=== PATIENT | male | born 1975 | race Caucasian/White ===

== ENCOUNTER 2025-02-26 07:58 | Emergency (ER) | payer OTHER, SELFPAY ==
[2025-02-26 07:58] VITALS: BP 164/99; PULSE 79; RESP 16; TEMP 36.5; O2SAT 99
--- NOTE | 2025-02-26 08:05 | ED_ITS ---
HPI - Dental/Oral General Chief complaint: Dental/Oral Stated complaint: tooth pain Time Seen by Provider: 02/26/25 08:04 Source: patient Mode of arrival: ambulatory Limitations: no limitations History of Present Illness HPI Narrative: this is a 49-year-old male with no significant past medical history presents with dental pain and abscess formation with some tender left submandibular gland no shortness of breath no nausea vomiting. MD Complaint: tooth pain Teeth map: 2 1. dental decay with surrounding gum abscess Onset (ago): day(s) Duration: constant Severity: moderate Severity scale (1-10): 3 Relieving factors: NSAIDs Exacerbating factors: chewing Associated symptoms: gum swelling Related Data Allergies Allergy/AdvReac Type Severity Reaction Status Date / Time No Known Allergies Allergy Verified 02/26/25 08:03 Review of Systems 2 Review of Systems: All systems reviewed & are unremarkable except as noted in HPI and below PMFSH Past Medical History Medical History Patient denies medical problems Exam 2 Const: General: healthy appearing, no acute distress and alert Nutritional Appearance: well nourished and thin Orientation/consciousness: patient oriented x3 Limitations: no limitations HENMT: Teeth and gingiva: abnormal tooth and associated gingiva Eyes: Conjunctivae: conjunctivae normal Pupils: Equal, round and reactive pupils present Neck: Neck: normal visual inspection and lymphadenopathy Chest: Chest palpation & inspection: normal inspection of the chest Resp: Effort & Inspection: normal respiratory effort Auscultation: clear to auscultation bilaterally Cardio: Rate: regular rate Rhythm: regular rhythm GI: GI Palp: Yes Soft to palpation Auscultation: normal bowel sounds : General: Yes bladder normal to palpation Skin: General skin exam: normal color Rashes: no rashes Course Course Emergency Course: patient requires antibiotics will send antibiotics to his local pharmacy advised patient follow-up with his dentist. Critical Care Time Critical Care Time Critical Care Time: No Discharge Plan Discharge Clinical Impression: Dental abscess, Dental caries Patient Disposition: Home Condition: Stable Instructions: Antibiotic Form, Dental Abscess (ED) Additional Instructions: Take medication as prescribed and follow-up with primary care physician/ dentist within the next 2 to 3 weeks further evaluation and treatment. Patient Language: Indonesian Prescriptions: New amoxicillin 500 mg tablet 500 mg PO TID Qty: 30 0RF naproxen 500 mg tablet 500 mg PO BID Qty: 14 0RF Follow-up/Referrals: Salas Sandra DO [Primary Care Provider] - Stand Alone Forms: Work/School Release IP Time of Disposition: 08:10
[2025-02-26 08:25] VITALS: BP 164/99; PULSE 79; RESP 16; TEMP 36.5; O2SAT 99
== END 2025-02-26 08:25 | disposition home or self-care (01) ==
PROVIDERS: Emergency Provider Emergency Medicine; Referring Provider Family Medicine
DX: K04.7 Periapical abscess without sinus (principal); K02.9 Dental caries, unspecified
CPT/HCPCS: 99283

== ENCOUNTER 2025-06-04 09:37 | Outpatient (CLI) | payer OTHER, SELFPAY ==
--- NOTE | 2025-06-04 | CONSULT_PTH ---
PATIENT: Jarrod Barakat Jr. LOC: [facility]#:[id number] AGE/SX: 50/M ROOM: RE06/04/[address]: Salas Sandra DO : 1975 BED: DIS: 06/04/2025 SPEC #: [id number] RECD: 06/04/25 12:13 STATUS: JOAQUIN REGabriela #: [id number] BLANK: 06/04/25 00:[address]: Salas Sandra DEPT: [facility] Consult RECD BY: Ritika Causey MLT, ([facility]) ENTERED: 06/04/25 12:13 SP TYPE: Consult OTHR DR: Faisal Soto MD Tissues: A - Peripheral Smear Procedures: Hematology Consult
[2025-06-04 09:51] LABS: Hematocrit 41.2 % (40.0-54.0); Hemoglobin 14.0 g/dL (14.0-18.0); Mean Corpuscular HGB Conc 34.0 g/dL (32-36); Mean Corpuscular Hemoglobin 32.1 pg (27.0-31.0); Mean Corpuscular Volume 94.5 fL (78.0-102.0); Platelet Count Result 260 K/mm3 (150-420); Red Blood Count 4.36 M/mm3 (4.70-6.10); White Blood Count 6.4 K/mm3 (4.8-10.8)
--- OUTSIDE RECORDS SUMMARY | 2025-06-04 10:06 | XMS_ITS | Clinical Summary ---
Author Organization [facility] Address [address] [place] [id number] Care Team Providers Care Meat Slicer Name Role Phone Toby Blue MD Primary Care Provider + Allergies No known active allergies Medications No known medications Active Problems Problem Noted Date Diagnosed Date Impacted cerumen of right ear 05/29/2023 Assessment & Plan (05/29/2023 3:22 PM CDT): - wax removed - f/u prn Lymphadenopathy 05/29/2023 Assessment & Plan (05/29/2023 3:23 PM CDT): - unclear etiology, likely due to resolving infection from ear or other URI - will treat with augmentin - if no improvement in sx in 14 days then will do f/u US to evaluate LN Positive colorectal cancer screening using Colog uard test 02/22/2023 Assessment & Plan (05/29/2023 3:23 PM CDT): - discussed need for colonoscopy and risk of cancer - pt to work out transportation and call us back to schedule apt Annual physical exam 01/17/2023 Assessment & Plan (01/17/2023 2:30 PM CDT): - Reviewed with the patient BMI, blood pressure, diet, exercise, and encouraged healthy lifestyle choices. - Screened for high risk behaviors, diet and exercise habits, and symptoms of depression. - check screening labs - encouraged regular exercise and healthy lifestyle Right hip pain 01/17/2023 Assessment & Plan (01/17/2023 2:31 PM CDT): - uncontrolled - gait abnormal but no pain elicited on exam - will get xray of R hip - ref to ortho for eval Tinea pedis of left foot 01/17/2023 Assessment & Plan (01/17/2023 2:31 PM CDT): - uncontrolled - discussed proper foot care - clotrimazole topical bid Scrotal swelling 09/14/2022 Assessment & Plan (09/14/2022 10:36 AM REFERRAL MANAGEMENT LIAISON): -Continued swelling Left epididymitis 08/09/2022 Assessment & Plan (09/14/2022 1:08 PM REFERRAL MANAGEMENT LIAISON): -Intermittent pain. Exam shows likely bilateral large hydroceles but given continued intermittent pain and recent swelling of right testicle, will repeat scrotal US. No erythema. Epididymis unremarkable. -Denies difficulty urinating, fevers. PLAN: -Scrotal US. Will f/u on results and further plan depending on results. Sepsis without acute organ dysfunction Acute cystitis without hematuria Hypernatremia Bilateral hydrocele Leukocytosis Chronic alcohol use Tobacco use disorder, continuous Normocytic normochromic anemia Immunizations Immunization Administration Dates Next Due Influenza, Unspecified 05/29/2023(Deferr ed: Patient Refused),06/03/2022(Deferred: Patient Refused) Tdap 03/04/2020 Family History Medical History Relation Name Comments Diabetes Father Hypertension Mother Relation Name Status Comments Father Alive Mother Alive Social History Tobacco Use Types Packs/Day Years Used Date Smoking Tobacco: Every Day Cigarettes Tobacco Cessation:Ready to Q uit: Not Asked; Counseling Given: Not Answered Social Connection and Isolation Panel Answer Date Recorded In a typical week, how many times do you talk on the phone with family, friends, or neighbors? Three times a week 08/10/2022 How often do you get togethe r with friends or relatives? Three times a week 08/10/2022 How often do you attend chur or mormon services? Never 08/10/2022 Do you belong to any clubs o r organizations such as scientology groups, unions, fraternal or athletic groups, or school groups? No 08/10/2022 How often do you attend meet ings of the clubs or organizations you belong to? Never 08/10/2022 Are you , , di vorced, , never , or living with a partner? Never 08/10/2022 AUDIT-C Answer Date Recorded Q1: How often do you have a drink containing alc ohol? 2-4 times a month 01/17/2023 Q2: How many drinks containi ng alcohol do you have on a typical day when you are drinking? 1 or 2 01/17/2023 Frequency of Binge Drinking Not on file 01/01 Overall Financial Resource Strain (CARDIA) Answe r Date Recorded How hard is it for you to pa y for the very basics like food, housing, medical care, and heating? Not very hard 08/10/2022 PHQ-2 Answer Date Recorded PHQ-2 Total Score (If total score is 3 or more points, staff should administer the PHQ-9) 4 01/17/2023 Hunger Vital Sign Answer Date Recorded Within the past 12 months, y ou worried that your food would run out before you got the money to buy more. Never true 08/10/20 22 Within the past 12 months, t he food you bought just didn't last and you didn't have money to get more. Never true 08/10/2022 PRAPARE - Transportation Answer Date Re corded In the past 12 months, has l ack of transportation kept you from medical appointments or from getting medications? No 04/2022 In the past 12 months, has l ack of transportation kept you from meetings, work, or from getting things needed for daily living? No 08/10/2022 Personal Safety Answer Date Recorded Getting School Help Needed Not on file 09/08 Sex and Gender Information Value Date Recorded Sex Assigned at Not on file Legal Sex Male 6:40 PM REFERRAL MANAGEMENT LIAISON Gender Identity Not on file Sexual Orientation Not on file Obstetrics History Last Filed Vital Signs Vital Sign Reading Time Taken Comments Blood Pressure 138/86 05/29/2023 2:57 PM CDT Pulse 66 05/29/2023 2:57 PM CDT Temperature 36.1 C (97 F) 05/29/2023 2:57 PM CDT Respiratory Rate 20 05/29/2023 2:57 PM CDT Oxygen Saturation 98% 05/29/2023 2:57 PM CDT Inhaled Oxygen Concentration - - Weight 77.8 kg (171 lb 8 oz) 05/29/2023 2:57 PM CDT Height 173.4 cm (5' 8.25) 05/29/2023 2:57 PM CD T Body Mass Index 25.89 05/29/2023 2:57 PM CDT Plan of Treatment Health Maintenance Due Date Last Done Comments Colon Cancer Screening-Colonoscopy 1975 Hepatitis C Screening 1975 Prostate Cancer Screening-PSA 1974 Hepatitis B Screening 1992 Pneumococcal vaccine <65 (1 of 2 - PCV) 1993 Depression Screening 01/18/2024 01/17/2023 Regular Well Visit/Exam 18-64 01/18/2024 01/17/2023 Zoster Vaccine (1 of 2) 2024 Influenza Vaccine (#1) 2025 DTaP/Tdap/Td Vaccine (2 - Td or Tdap) 03/04/203010/2019 Insurance [facility] [address] [place] [address] Advance Directives For more information, please contact: [phone] * Full Code (Latest Code Status on File) Date Activated Date Inactivated Comments 08/09/2022 5:30 PM 08/12/2022 7:11 PM Care Teams Meat Slicer Relationship Specialty Start Date End Date Toby Blue MD [facility] [id number] PCP - General Family Medicine 01/17/23
[2025-06-04 10:24] LABS: Band Neutrophils Percent 0 % (0-6); Eosinophils Absolute Manual 1.47 K/mm3 (0.02-0.50); Eosinophils Percent Manual 23 % (1-6); Lymphocytes Absolute Manual 1.47 K/mm3 (1.1-4.5); Lymphocytes Percent Manual 23 % (18-44); Monocytes Absolute Manual 0.64 K/mm3 (0.1-0.90); Monocytes Percent Manual 10 % (3-9); Neutrophils Absolute Manual 2.81 K/mm3 (1.3-6.7); Neutrophils Percent Manual 44 % (46-73); Total Cells Counted 100
[2025-06-04 10:37] LABS: Alanine Aminotransferase 20 U/L (6-50); Albumin Level 4.4 g/dL (3.5-5.1); Alkaline Phosphatase 65 U/L (38-126); Anion Gap 9 mmol/L (4-12); Aspartate Amino Transferase 32 U/L (17-59); Bilirubin,Total 0.5 mg/dL (0.2-1.3); Blood Urea Nitrogen 4 mg/dL (9-20); Calcium 9.6 mg/dL (8.4-10.2); Carbon Dioxide 28 mmol/L (22-30); Chloride 101 mmol/L (98-107); Cholesterol 213 mg/dL (0-200); Estimated Glomerular Filt Rate > 60; Glucose 88 mg/dL (65-110); Osmolality Calculated 281 mOsm/kg (285-295); Potassium 4.8 mmol/L (3.4-5.0); Sodium 138 mmol/L (137-145); Total Protein 7.8 g/dL (6.3-8.2); Triglycerides 40 mg/dL (<150)
[2025-06-04 10:39] LABS: HDL Direct > 110 mg/dL
[2025-06-04 11:09] LABS: Thyroid Stimulating Hormone Reflex 1.220 uIU/mL (0.465-4.68)
== END 2025-06-04 09:38 | disposition home or self-care (01) ==
LOC: CHSLAB 09:38
PROVIDERS: PCP Emergency Medicine; Visit Provider Family Medicine
DX: Z00.00 Encounter for general adult medical examination without abnormal findings (principal); E03.9 Hypothyroidism, unspecified
CPT/HCPCS: 36415; 80053; 80061; 84443; 85025